=== PATIENT | male | born 1985 ===

== ENCOUNTER 2020-09-21 21:30 | Emergency (ER) | payer SELFPAY ==
--- NOTE | 2020-09-21 22:15 | DI.RAD_ITS ---
EXAM: XR KNEE LT 2V AP,LAT CLINICAL HISTORY: Laceration, R/O Foreign body. TECHNIQUE: 2D digital imaging was performed. COMPARISON: No exams were available for comparison FINDINGS: There is no evidence of fracture or prominent joint effusion. Bone density is normal. No osseous lesions. IMPRESSION: DATA REPOSITORY: RADIATION DOSE DELIVERED:
[2020-09-21 22:19] VITALS: BP 124/71; PULSE 82; RESP 16; TEMP 36.6; O2SAT 97
--- NOTE | 2020-09-21 22:29 | ED.GENADUL_ITS ---
Discharge Plan Disposition Patient Disposition: HOME Condition: Stable Discharge Details Clinical Impression: Laceration of knee, left Primary Care Provider: None,None ED Provider: Marielle Rea Home Meds and New Rx's Prescriptions: No Action No Known Home Meds RF: 0 Discharge Instructions Instructions: Laceration (ED) Additional Instructions: Have sutures removed in 7 to 10 days. Wear brace for the next 3 to 5 days in order to decrease bending movements. Watch for signs of infection including increased redness, swelling, red streaks, drainage. No soaking. After 12 to 24 hours you may wash under running soap and water. Keep clean and dry allowed to air dry at least 2 hours every day. Only use bacitracin or other topical antibiotic ointment for the first day or 2. Follow up with primary care provider in 3-5 days. Return to ED sooner if any worsening or concerns. Increase oral fluids. Take Tylenol or ibuprofen every 4- 6 hours as needed for pain and swelling. Rest ice compression elevation Medical Decision Making 35-year-old male presents with a anteromedial laceration to his left knee. Im aging will be obtained to rule out foreign body or bony abnormality. Will place topical let and plan for laceration repair. Imaging protocol: XR Left knee. Views: 1 or 2 views. Total images: 2 COMPARISON: No relevant prior studies available. FINDINGS: Bones/joints: No bony or joint space abnormality. No effusion. No opaque foreign body. Soft tissues: Unremarkable. IMPRESSION: Unremarkable. Thank you for allowing us to participate in the care of your patient. Dictated and Authenticated by: Brennan Romano MD Laceration infiltrated with lidocaine 1% with anesthesia achieved. Wound was irrigated with sterile normal saline with Betadine and chlorhexidine. Laceration was repaired with 3 simple interrupted sutures four-point 0 nylon. Discussed home care and strict return instructions patient verbalized Hinged knee brace applied by hospital staff pharmacist to prevent bending. Patient instructed to have sutures removed in 7 to 10 days. HPI General Mode of arrival: ambulatory . Date/Time Provider Initiated Documentation: 09/21/20 22:20 . Limitations to Documentation: no limitations . Information obtained by: patient . HPI Narrative: 35-year-old male presents to the ER after a slip and fall while running down a hill approximately 2 hours prior to arrival. He has a noted to the anterior his left knee medial aspect measuring approximately 1-1/2 cm. There is a linear laceration has a small venous ooze noted. He reports pain with ambulation. No obvious deformity, swe lling or crepitus noted. No loss of consciousness no other injury. last tetanus shot was last week. Distal extremity and proximal extremity without injury circulation sensation intact cap refill less than patient is alert and oriented Related Data Home Medications Medication Instructions Recorded Confirmed Unknown [No Known Home Meds] 09/21/20 09/21/20 Allergies Allergy/AdvReac Type Severity Reaction Status Date / Time No Known Allergies Allergy Unverified 09/21/20 22:24 General Stated Complaint: Laceration FLORENTIN: 5 Review of Systems All systems reviewed & are unremarkable except as noted in HPI and below Musculoskeletal Musculoskeletal: Reports as per HPI and Reports arthralgias (Left knee) Integumentary/Breasts Skin/Breast: Reports wounds (Laceration left medial anterior knee) [facility] Social History Smoking risk assessment performed?: No Exam Extrem Elbow/forearm/wrist images: 1. 1.5 cm laceration noted with a slow venous ooze Left lower extremity: full ROM, normal capillary refill, no joint enlargement and knee Details: laceration knee anteromedial Details: linear, actively bleeding, involving subcutaneous tissue, with motor nerve function intact, with sensation intact, with distal motor nerve function intact, with distal sensation intact and with distal tendon function intact; no edema Course Vital Signs Vital signs: Vital Signs Temperature 36.6 C 09/21/20 22:19 Pulse 82 09/21/20 22:19 Respiratory Rate 16 09/21/20 22:19 Blood Pressure 124/71 09/21/20 22:19 Pulse Oximetry 97 09/21/20 22:19 Temperature 36.6 C 09/21/20 22:19 Temperature Source Skin 09/21/20 22:19 Pulse 82 09/21/20 22:19 Respiratory Rate 16 09/21/20 22:19 Blood Pressure 124/71 09/21/20 22:19 Blood Pressure Position Sitting 09/21/20 22:19 Pulse Oximetry 97 09/21/20 22:19 Oxygen Delivery Method Room Air 09/21/20 22:19 Oxygen Flow Rate 0 09/21/20 22:19 Pain Level 4 09/21/20 22:19 Procedures Laceration Laceration 1: Site: lower extremity Side (If applicable): left Size (cm): 1.5 Description: linear and clean Depth: simple, single layer Local Anesthetic: Lidocaine 1% and with Epi Amount of anesthesia used (mL): 3 Pre-repair: wound explored, irrigated extensively and deep structures intact Skin layer closed with: nylon Size (cm): 4-0 Number of sutures: 3 Technique: simple, interrupted
[2020-09-21] MEDS: Lidocaine/Epinephri/Tetracaine Topical Gel 3 ML TP (22:51)
--- NOTE | 2020-09-21 23:53 | DI.VRAD_ITS ---
PROCEDURE INFORMATION: Exam: XR Left Knee Exam date and time: 09/21/2020 11:26 PM Age: 35 years old Clinical indication: Injury or trauma; Patella or knee; Foreign body involvement not specified; Injury date: 09/21/20; Injury details: Fall with laceration on left knee; Patient HX: Fall with pain and laceration, R/O fb TECHNIQUE: Imaging protocol: XR Left knee. Views: 1 or 2 views. Total images: 2 COMPARISON: No relevant prior studies available. FINDINGS: Bones/joints: No bony or joint space abnormality. No effusion. No opaque foreign body. Soft tissues: Unremarkable. IMPRESSION: Unremarkable. Dictated and Authenticated by: Brennan Romano MD. Ordering:ANYA Palomares MD
== END 2020-09-22 00:40 | disposition home or self-care (01) ==
PROVIDERS: Emergency Provider Registered Nurse Emergency
DX: S81.012A Laceration without foreign body, left knee, initial encounter (principal); W17.81XA Fall down embankment (hill), initial encounter
CPT/HCPCS: 12001; 99281; 73560